=== PATIENT | female | born 1985 | race Caucasian/White ===

== ENCOUNTER 2023-11-02 05:15 | Inpatient (IN) | payer BC ==
[~2023-11-02 05:15] MED LIST: Lactated Ringers 1,000 ML IV SCH; Oxytocin/Lactated Ringers 30 UNIT/500 ML BAG IV SCH; Sodium Chloride 0.9% 10 ML Syringe FLUSH PRN
[2023-11-02] MEDS: Lactated Ringers 1,000 ML IV SCH (05:35)
[2023-11-02 05:36] LABS: BASOPHILS PERCENT AUTO 0.3 % (0.0-1.0); EOSINOPHILS ABSOLUTE AUTO 0.1 K/mm3 (0.0-0.4); EOSINOPHILS PERCENT AUTO 1.1 % (0.0-6.0); HEMATOCRIT 37.4 % (37.0-47.0); HEMOGLOBIN 12.5 gm/dl (12.0-16.0); IMMATURE GRAN ABSOLUTE AUTO 0.05 K/mm3 (0.00-0.05); IMMATURE GRAN PERCENT AUTO 0.5 % (0.0-0.4); LYMPHOCYTES ABSOLUTE AUTO 2.2 K/mm3 (1.0-4.8); LYMPHOCYTES PERCENT AUTO 21.1 % (24.0-44.0); MEAN CORPUSCULAR HEMOGLOBIN 28.1 pg (28.0-32.0); MEAN CORPUSCULAR HGB CONC 33.4 g/dl (32.0-36.0); MEAN PLATELET VOLUME 10.4 fl (9.4-12.3); MONOCYTES ABSOLUTE AUTO 0.8 K/mm3 (0.0-0.8); MONOCYTES PERCENT AUTO 8.2 % (0.0-8.0); NEUTROPHILS PERCENT AUTO 68.8 % (41.0-71.0); PLATELET COUNT,PLT 154 K/mm3 (150-400); RED BLOOD CELL COUNT 4.45 M/mm3 (4.10-5.30); WHITE BLOOD CELL COUNT,WBC 10.23 K/mm3 (3.9-11.3)
[2023-11-02] MEDS ORDERED: Lactated Ringers 1,000 ML IV SCH (06:15)
[2023-11-02] MEDS ORDERED: Oxytocin/0.9 % Sodium Chloride 30 UNIT/500 ML BAG IV SCH (06:15)
[2023-11-02] MEDS ORDERED: Lactated Ringers 1,000 ML ONE (07:04)
[2023-11-02] MEDS ORDERED: Morphine PF 10 MG/10 ML SDV ONE (07:04)
[2023-11-02] MEDS ORDERED: Ketorolac 30 MG/ML SDV ONE (07:04)
[2023-11-02] MEDS ORDERED: Ondansetron 4 MG/2 ML SDV ONE (07:04)
[2023-11-02] MEDS ORDERED: ceFAZolin 2 GM Vial ONE (07:06)
[2023-11-02] MEDS: Metoclopramide 10 MG/2 ML SDV IVPUSH ONE ×2 (07:07→10:43)
[2023-11-02] MEDS: Citric Acid/Sodium Citrate Solution 30 ML Cup PO ONE ×2 (07:07→10:43)
[2023-11-02] MEDS ORDERED: ePHEDrine 50 MG/ML SDV ONE (07:08)
[2023-11-02] MEDS ORDERED: Meperidine 50 MG/ML Vial IVPUSH PRN (07:24)
[2023-11-02] MEDS ORDERED: fentaNYL 100 MCG/2 ML SDV IVPUSH PRN (07:24)
[2023-11-02] MEDS ORDERED: diphenhydrAMINE 50 MG/ML SDV IVPUSH PRN ×2 (07:24→09:13)
[2023-11-02] MEDS ORDERED: Ondansetron 4 MG/2 ML SDV IVPUSH PRN (07:24)
[2023-11-02] MEDS: Bupivacaine 0.5% 30 ML SDV ONE (07:55)
[2023-11-02] MEDS ORDERED: Sodium Chloride 0.9% 10 ML Syringe FLUSH SCH (09:00)
[2023-11-02] MEDS ORDERED: ePHEDrine 50 MG/ML SDV IVPUSH PRN (09:13)
[2023-11-02] MEDS ORDERED: Naloxone 0.4 MG/ML SDV IVPUSH PRN (09:13)
[2023-11-02] MEDS ORDERED: Ibuprofen 600 MG Tab PO PRN (09:13)
[2023-11-02] MEDS: Dextrose 5%-Lactated Ringers 1,000 ML IV SCH (09:20)
[2023-11-02] MEDS: Sodium Chloride 0.9% 10 ML Syringe FLUSH SCH (10:42)
[2023-11-02] MEDS: ceFAZolin 2 GM in Sodium Chloride 0.9% 50 ML IV ONE ×2 (10:43)
[2023-11-02] MEDS: Ibuprofen 600 MG Tab PO SCH (10:44)
[2023-11-02] MEDS: Acetaminophen 325 MG Tab PO SCH (10:44)
[2023-11-02] MEDS: Ketorolac 30 MG/ML SDV IVPUSH SCH (14:26)
[2023-11-03 05:36] LABS: BASOPHILS ABSOLUTE AUTO 0.1 K/mm3 (0.0-0.2); BASOPHILS PERCENT AUTO 0.5 % (0.0-1.0); EOSINOPHILS ABSOLUTE AUTO 0.2 K/mm3 (0.0-0.4); EOSINOPHILS PERCENT AUTO 1.5 % (0.0-6.0); HEMATOCRIT 31.9 % (37.0-47.0); IMMATURE GRAN ABSOLUTE AUTO 0.06 K/mm3 (0.00-0.05); IMMATURE GRAN PERCENT AUTO 0.6 % (0.0-0.4); LYMPHOCYTES ABSOLUTE AUTO 2.1 K/mm3 (1.0-4.8); LYMPHOCYTES PERCENT AUTO 21.3 % (24.0-44.0); MEAN CORPUSCULAR HEMOGLOBIN 28.9 pg (28.0-32.0); MEAN CORPUSCULAR HGB CONC 33.5 g/dl (32.0-36.0); MEAN CORPUSCULAR VOLUME 86.2 fl (83.0-99.0); MEAN PLATELET VOLUME 10.3 fl (9.4-12.3); MONOCYTES ABSOLUTE AUTO 0.8 K/mm3 (0.0-0.8); MONOCYTES PERCENT AUTO 7.9 % (0.0-8.0); NEUTROPHILS ABSOLUTE AUTO 6.7 K/mm3 (1.8-7.7); NEUTROPHILS PERCENT AUTO 68.2 % (41.0-71.0); PLATELET COUNT,PLT 138 K/mm3 (150-400); WHITE BLOOD CELL COUNT,WBC 9.85 K/mm3 (3.9-11.3)
[2023-11-03 05:48] LABS: HEMOGLOBIN 10.7 gm/dl (12.0-16.0)
[2023-11-03] MEDS: Ibuprofen 600 MG Tab PO SCH (08:50)
[2023-11-03] MEDS: Acetaminophen/oxyCODONE 325-5 MG Tab PO PRN ×2 (10:12→14:12)
[2023-11-03] MEDS: Sertraline 25 MG Tab PO SCH (12:18)
[2023-11-04] MEDS ORDERED: Simethicone 80 MG Tab.Chew PO PRN (06:32)
[2023-11-04] MEDS: Ibuprofen 600 MG Tab PO SCH (09:50)
[2023-11-04 14:00] VITALS: BP 126/68; PULSE 73
[2023-11-04] MEDS ORDERED: Measles, Mumps & Rubella Vaccine 0.5 ML SDV SUBCUT ONE (14:18)
== END 2023-11-04 14:50 | disposition home or self-care (01) | DRG 540 ==
LOC: JD.OB 05:15
PROVIDERS: ADMIT Obstetrics & Gynecology; ATTEND Obstetrics & Gynecology
PROC: 3E0234Z Introduction of Serum, Toxoid and Vaccine into Muscle, Percutaneous Approach (ICD-10-PCS; 2023-11-02)
PROC: 10D00Z1 Extraction of Products of Conception, Low, Open Approach (ICD-10-PCS; principal; 2023-11-02 08:00)
DX: O34.211 Maternal care for low transverse scar from previous cesarean delivery (principal); O99.02 Anemia complicating childbirth; D50.9 Iron deficiency anemia, unspecified; Z37.0 Single live birth; Z3A.39 39 weeks gestation of pregnancy; O99.214 Obesity complicating childbirth; Z23 Encounter for immunization; O99.345 Other mental disorders complicating the puerperium; F53.0 Postpartum depression
CPT/HCPCS: 36415; 59025; 85025; 86592; 86850; 86900; 86901; 90471; A9270-GY; J0665; J0690; J1885; J2274; J2405; J2765; J3490; J7120; J7121; J7999